=== PATIENT | female | born 1940 | race Caucasian/White ===

== ENCOUNTER 2016-09-21 13:47 | Emergency (ER) | payer MEDICARE ==
[~2016-09-21] VITALS: Ht 167.6 cm; Wt 70.0 kg
[2016-09-21 14:24] LABS: HEMATOCRIT 45.4 % (37.0-47.0); HEMOGLOBIN 15.5 g/dl (12.0-16.0); IMMATURE GRANULOCYTES 0.3 % (0.0-1.0); MEAN CELL VOLUME 88.2 fL CALC (80.0-100.0); MEAN CORPUSCULAR HGB 30.1 pG CALC (26.0-32.0); MEAN CORPUSCULAR HGB CONC 34.1 g/L CALC (32.0-36.0); NEUT# 6.09 thou/uL (2.00-7.15); RED BLOOD COUNT 5.15 mill/uL (4.20-5.60); RED CELL DISTRI WIDTH 13.1 % (11.5-15.5)
[2016-09-21 14:35] LABS: ALKALINE PHOSPHATASE 62 u/l (38-126); ANION GAP 14 (6-22 (CALC)); BILIRUBIN, TOTAL 0.6 mg/dL (0.0-1.4); BUN 16 mg/dL (8-23); BUN/CREATININE RATIO 20 (12-20 (CALC)); CALCIUM 9.6 mg/dL (8.4-10.2); CARBON DIOXIDE 29 mmol/l (22-30); CHLORIDE 106 mmol/l (95-108); CREATININE 0.8 mg/dL (0.5-1.0); GFR > 60 ML/MIN (>=60 (CALC)); GFR FOR AFR.AMER. > 60 ML/MIN (>=60 (CALC)); GLUCOSE 121 mg/dL (82-115); POTASSIUM 3.9 mmol/l (3.5-5.1); SGOT/AST 16 u/l (9-36); SGPT/ALT 33 u/l (11-66); SODIUM 145 mmol/l (137-146)
[2016-09-21 14:39] LABS: INTERNATIONAL NORMALIZED RATIO 0.9 RATIO (0.7-1.3)
[2016-09-21 14:47] LABS: MYOGLOBIN 37 ng/mL (0 - 62)
[2016-09-21 15:43] VITALS: BP 148/66
== END 2016-09-21 15:41 | disposition short-term general hospital (02) ==
LOC: ED 13:47
PROVIDERS: Emergency Medicine
DX: I63.9 Cerebral infarction, unspecified (principal); R47.81 Slurred speech; I10 Essential (primary) hypertension; R29.708 NIHSS score 8

== ENCOUNTER 2018-01-05 00:47 | Emergency (ER) | payer MEDICARE ==
[~2018-01-05] VITALS: Ht 167.6 cm; Wt 63.6 kg
[~2018-01-05 00:47] MED LIST: ASPIRIN81 MG PO; B-121000 MC1 PO; BACTRIM DS1 TAB PO; GLIPIZIDE ER5 M1 PO; JANUVIA100 MG PO; KEFLEX500 M1 PO; LEVOTHYROXIN50 MCG PO; LIPITOR40 M1 PO; LISINOPRIL10 MG PO; METFORMIN500 MG PO
[2018-01-05] MEDS ORDERED: DONEPEZIL5 MG PO (01:28)
[2018-01-05] MEDS ORDERED: DILTIAZEM90 MG PO (01:29)
[2018-01-05 01:38] LABS: HEMATOCRIT 43.4 % (37.0-47.0); HEMOGLOBIN 15.2 g/dl (12.0-16.0); IMMATURE GRANULOCYTES 0.2 % (0.0-5.0); MEAN CELL VOLUME 88.4 fL CALC (80.0-100.0); NEUT# 6.63 thou/uL (2.00-7.15); RED BLOOD COUNT 4.91 mill/uL (4.20-5.60); RED CELL DISTRI WIDTH 12.4 % (11.5-15.5)
[2018-01-05 01:50] LABS: ALBUMIN 4.4 g/dL (3.2-5.0); ALKALINE PHOSPHATASE 109 u/l (38-126); ANION GAP 17 (6-22 (CALC)); BILIRUBIN, TOTAL 0.7 mg/dL (0.0-1.4); BUN 14 mg/dL (8-23); BUN/CREATININE RATIO 19 (12-20 (CALC)); CARBON DIOXIDE 26 mmol/l (22-30); CHLORIDE 106 mmol/l (95-108); CREATININE 0.7 mg/dL (0.5-1.0); GFR > 60 ML/MIN (>=60 (CALC)); GFR FOR AFR.AMER. > 60 ML/MIN (>=60 (CALC)); POTASSIUM 3.7 mmol/l (3.5-5.1); SGOT/AST 31 u/l (9-36); SGPT/ALT 46 u/l (11-66); SODIUM 145 mmol/l (137-146); TOTAL PROTEIN 7.4 g/dL (6.3-8.2)
[2018-01-05 02:05] LABS: MYOGLOBIN 149 ng/mL (0 - 62)
[2018-01-05 02:23] VITALS: BP 171/78
== END 2018-01-05 02:30 | disposition home or self-care (01) ==
LOC: ED 00:47
PROVIDERS: Emergency Medicine
DX: I10 Essential (primary) hypertension (principal); E11.9 Type 2 diabetes mellitus without complications; F03.90 Unspecified dementia, unspecified severity, without behavioral disturbance, psychotic disturbance, mood disturbance, and anxiety

== ENCOUNTER 2021-03-06 19:59 | Emergency (ER) | payer MEDICARE ==
[~2021-03-06] VITALS: Ht 167.6 cm; Wt 70.5 kg
[~2021-03-06 19:59] MED LIST changes: +DILTIAZEM90 MG PO; +DONEPEZIL5 MG PO
[2021-03-06 20:30] LABS: HEMATOCRIT 40.4 % (37.0-47.0); IMMATURE GRANULOCYTES 0.2 % (0.0-5.0); MEAN CELL VOLUME 92.4 fL CALC (80.0-100.0); MEAN CORPUSCULAR HGB 30.2 pG CALC (26.0-32.0); MEAN CORPUSCULAR HGB CONC 32.7 g/dL CAL (32.0-36.0); NEUT# 7.61 thou/uL (2.00-7.15); RED BLOOD COUNT 4.37 mill/uL (4.20-5.60); RED CELL DISTRI WIDTH 12.8 % (11.5-15.5)
[2021-03-06 20:31] LABS: HEMOGLOBIN 13.2 g/dl (12.0-16.0)
[2021-03-06 20:43] LABS: ALBUMIN 3.8 g/dL (3.2-5.0); ALKALINE PHOSPHATASE 73 u/l (38-126); ANION GAP 11 (6-22 (CALC)); BILIRUBIN, TOTAL 0.5 mg/dL (0.0-1.4); BUN 25 mg/dL (8-23); BUN/CREATININE RATIO 32 (12-20 (CALC)); CARBON DIOXIDE 29 mmol/l (22-30); CHLORIDE 101 mmol/l (95-108); CREATININE 0.8 mg/dL (0.5-1.0); GFR > 60 ML/MIN (>=60 (CALC)); GFR FOR AFR.AMER. > 60 ML/MIN (>=60 (CALC)); POTASSIUM 4.2 mmol/l (3.5-5.1); SGOT/AST 22 u/l (9-36); SODIUM 138 mmol/l (137-146); TOTAL PROTEIN 6.9 g/dL (6.3-8.2)
[2021-03-06 20:55] LABS: MYOGLOBIN 60 ng/mL (0 - 62)
[2021-03-06 23:50] LABS: URINE BILIRUBIN - DIPSTICK NEGATIVE (NEGATIVE); URINE BLOOD DIPSTICK NEGATIVE (NEGATIVE); URINE COLOR YELLOW; URINE GLUCOSE - DIPSTICK 100 mg/dL (NEGATIVE); URINE KETONE NEGATIVE (NEGATIVE); URINE LEUK ESTERASE NEGATIVE (NEGATIVE); URINE PH 6.5 (4.5-8.0); URINE PROTEIN - DIPSTICK NEGATIVE (NEG-TRACE); URINE UROBILINOGEN - DIPSTICK 0.2 E.U./dL (0.2)
[2021-03-06 23:55] LABS: URINE NITRITE - DIPSTICK NEGATIVE (Negative)
[2021-03-07 00:18] VITALS: BP 162/88
== END 2021-03-07 00:18 | disposition home or self-care (01) ==
LOC: ED 19:59
PROVIDERS: Emergency Medicine
DX: E86.0 Dehydration (principal); I10 Essential (primary) hypertension; E11.9 Type 2 diabetes mellitus without complications; F03.90 Unspecified dementia, unspecified severity, without behavioral disturbance, psychotic disturbance, mood disturbance, and anxiety; Z79.84 Long term (current) use of oral hypoglycemic drugs; Z20.822 Contact with and (suspected) exposure to COVID-19

== ENCOUNTER 2022-12-23 16:11 | Emergency (ER) | payer MEDICARE ==
[2022-12-23] VITALS (7 sets, daily range): BP systolic 108–176; BP diastolic 51–85
[~2022-12-23] VITALS: Ht 167.6 cm; Wt 64.4 kg
[2022-12-23 16:37] LABS: BASO% 0.8 % (0-3); EOS% 3.1 % (0-8); HEMATOCRIT 34.5 % (37.0-47.0); HEMOGLOBIN 11.5 g/dl (12.0-16.0); IMMATURE GRANULOCYTES 0.1 % (0.0-5.0); LYMPH% 16.5 % (15-41); MEAN CELL VOLUME 91.5 fL CALC (80.0-100.0); MEAN CORPUSCULAR HGB 30.5 pG CALC (26.0-32.0); MEAN CORPUSCULAR HGB CONC 33.3 g/dL CAL (32.0-36.0); NEUT# 5.83 thou/uL (2.00-7.15); NEUT% 69.5 % (42-76); RED BLOOD COUNT 3.77 mill/uL (4.20-5.60); RED CELL DISTRI WIDTH 13.2 % (11.5-15.5)
[2022-12-23] MEDS ORDERED: LOSARTAN POTAS100 MG PO (16:43)
[2022-12-23 16:56] LABS: ALBUMIN 3.3 g/dL (3.2-5.0); ALKALINE PHOSPHATASE 63 u/l (38-126); ANION GAP 10 (6-22 (CALC)); BILIRUBIN, TOTAL 0.5 mg/dL (0.02-1.3); BUN 16 mg/dL (8-23); BUN/CREATININE RATIO 16 (12-20 (CALC)); CARBON DIOXIDE 28 mmol/l (22-30); CHLORIDE 99 mmol/l (95-108); GFR FOR AFR.AMER. > 60 ML/MIN (>=60 (CALC)); GFR OTHER RACES 53 ML/MIN (>=60 (CALC)); SGOT/AST 25 u/l (9-36); SODIUM 133 mmol/l (137-146)
[2022-12-23 17:11] LABS: URINE BLOOD DIPSTICK Negative (NEGATIVE); URINE GLUCOSE - DIPSTICK Negative (NEGATIVE); URINE KETONE 15 mg/dL (NEGATIVE); URINE NITRITE - DIPSTICK Negative (Negative); URINE PH 5.5 (4.5-8.0); URINE PROTEIN - DIPSTICK 30 mg/dL (NEG-TRACE)
[2022-12-23 17:18] LABS: URINE COLOR Yellow; URINE LEUK ESTERASE Small (NEGATIVE)
[2022-12-23 17:24] LABS: URINE MUCUS MODERATE hpf (NONE-FEW); URINE SQUAMOUS EPITHELIAL CELL MODERATE EPI/hpf (0-FEW)
[2022-12-23] MEDS ORDERED: KEFLEX500 MG PO (18:53)
== END 2022-12-23 19:02 | disposition home or self-care (01) ==
LOC: ED 16:11
PROVIDERS: Nurse Practitioner
DX: R41.82 Altered mental status, unspecified (principal); N39.0 Urinary tract infection, site not specified; F03.90 Unspecified dementia, unspecified severity, without behavioral disturbance, psychotic disturbance, mood disturbance, and anxiety; I10 Essential (primary) hypertension; E11.9 Type 2 diabetes mellitus without complications; Z79.84 Long term (current) use of oral hypoglycemic drugs

== ENCOUNTER 2023-04-15 14:16 | Emergency (ER) | payer MEDICARE ==
[2023-04-15] VITALS (11 sets, daily range): BP systolic 138–171; BP diastolic 62–125
[~2023-04-15] VITALS: Ht 167.6 cm; Wt 64.4 kg
[~2023-04-15 14:16] MED LIST changes: +KEFLEX500 MG PO; +LOSARTAN POTAS100 MG PO
[2023-04-15 14:59] LABS: BASO% 0.6 % (0-3); EOS% 0.2 % (0-8); HEMATOCRIT 34.5 % (37.0-47.0); HEMOGLOBIN 11.2 g/dl (12.0-16.0); LYMPH% 20.1 % (15-41); MEAN CELL VOLUME 92.7 fL CALC (80.0-100.0); MEAN CORPUSCULAR HGB 30.1 pG CALC (26.0-32.0); MEAN CORPUSCULAR HGB CONC 32.5 g/dL CAL (32.0-36.0); MONO% 15.2 % (2-13); NEUT# 2.95 thou/uL (2.00-7.15); NEUT% 63.9 % (42-76); RED BLOOD COUNT 3.72 mill/uL (4.20-5.60); RED CELL DISTRI WIDTH 13.7 % (11.5-15.5)
[2023-04-15 15:19] LABS: ALBUMIN 3.3 g/dL (3.2-5.0); ALKALINE PHOSPHATASE 60 u/l (38-126); ANION GAP 10 (6-22 (CALC)); BILIRUBIN, TOTAL 0.5 mg/dL (0.02-1.3); BUN 12 mg/dL (8-23); BUN/CREATININE RATIO 20 (12-20 (CALC)); CARBON DIOXIDE 29 mmol/l (22-30); CHLORIDE 97 mmol/l (95-108); CREATININE 0.6 mg/dL (0.5-1.0); GFR FOR AFR.AMER. > 60 ML/MIN (>=60 (CALC)); GFR OTHER RACES > 60 ML/MIN (>=60 (CALC)); POTASSIUM 4.1 mmol/l (3.5-5.1); SGOT/AST 34 u/l (9-36); SODIUM 132 mmol/l (137-146); TOTAL PROTEIN 5.5 g/dL (6.3-8.2)
[2023-04-15 15:36] LABS: URINE BILIRUBIN - DIPSTICK Negative (NEGATIVE); URINE BLOOD DIPSTICK Negative (NEGATIVE); URINE GLUCOSE - DIPSTICK Negative (NEGATIVE); URINE KETONE Negative (NEGATIVE); URINE LEUK ESTERASE Negative (NEGATIVE); URINE NITRITE - DIPSTICK Negative (Negative); URINE PROTEIN - DIPSTICK Trace mg/dL (NEG-TRACE)
[2023-04-15 15:37] LABS: URINE COLOR Yellow
[2023-04-15] MEDS ORDERED: TAM75CAP PO (18:51)
--- NOTE | 2023-04-17 12:23 | NUR ---
Preliminary blood culture results show 1 of 2 sets growing gram positive cocci, probable contaminant. Will follow-up with final results tomorrow am.
--- NOTE | 2023-04-18 07:30 | NUR ---
Blood cultures growing Staph hominis in 1 of 2 sets, probable skin contaminant. No follow-up warranted at this time.
== END 2023-04-15 19:41 | disposition home or self-care (01) ==
LOC: ED 14:16
PROVIDERS: Nurse Practitioner
DX: J10.1 Influenza due to other identified influenza virus with other respiratory manifestations (principal); F03.90 Unspecified dementia, unspecified severity, without behavioral disturbance, psychotic disturbance, mood disturbance, and anxiety; I10 Essential (primary) hypertension; E11.9 Type 2 diabetes mellitus without complications; Z79.84 Long term (current) use of oral hypoglycemic drugs; Z20.822 Contact with and (suspected) exposure to COVID-19